=== PATIENT | female | born 1975 | race Caucasian/White ===

== ENCOUNTER 2022-12-17 08:04 | Day surgery (SDC) | payer OTHER ==
[~2022-12-17] VITALS: Ht 154.9 cm; Wt 69.4 kg
[2022-12-17] MEDS ORDERED: fentaNYL citrate 0.05 MG/ML VIAL ONE (09:06)
[2022-12-17] MEDS ORDERED: diphenhydrAMINE 50 MG/ML VIAL ONE (09:06)
[2022-12-17] MEDS ORDERED: MIDAZOLAM 5 MG/5 ML VIAL ONE (09:07)
[2022-12-17] MEDS: MIDAZOLAM 5 MG/5 ML VIAL IV ONE (09:35)
[2022-12-17] MEDS: fentaNYL citrate 0.05 MG/ML VIAL IVP ONE (09:36)
[2022-12-17] MEDS: diphenhydrAMINE 50 MG/ML VIAL IVP ONE (09:38)
[2022-12-17] MEDS: LIDOCAINE 2% 100 MG/5 ML UJET TP ONE (09:41)
== END 2022-12-17 10:43 | disposition home or self-care (01) ==
LOC: MDS 08:04 → MMU 08:15 → MDS 10:43
PROVIDERS: ATTEND Internal Medicine Gastroenterology
DX: Z12.11 Encounter for screening for malignant neoplasm of colon (principal); J45.909 Unspecified asthma, uncomplicated; E03.9 Hypothyroidism, unspecified; Z85.43 Personal history of malignant neoplasm of ovary; Z90.49 Acquired absence of other specified parts of digestive tract; Z79.899 Other long term (current) drug therapy
CPT/HCPCS: J1200; J2250; J3010